=== PATIENT | male | born 1960 | race Caucasian/White ===

== ENCOUNTER 2023-12-11 07:33 | Day surgery (SDC) | payer OTHER, SELFPAY ==
[2023-12-11] VITALS (8 sets, daily range): BP systolic 133–156; BP diastolic 89–101; PULSE 63–73; TEMP 36.2–36.3; O2SAT 95–98; BMI 28.1
--- NOTE | 2023-12-11 07:40 | ECG_ITS ---
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
[2023-12-11 08:02] LABS: INR 0.97; Partial Thromboplastin Time 29.1 sec (22.3-36.2); Prothrombin Time 10.3 sec (9.0-11.6)
[2023-12-11] MEDS: LACTATED RINGER'S SOLUTION 1,000 ML 50 ML IV ×2 (08:13→10:25)
[2023-12-11] MEDS: CEFAZOLIN SODIUM/DEXTROSE,ISO 2 GM/50 ML PIGGYBACK IV (09:10)
--- NOTE | 2023-12-11 09:45 | XR_ITS ---
[address] [address] Patient Name: GEOVANNA JOHANSEN MRN: [id number] date: 1960 Sex: M Assigned Patient Location: [facility] Current Patient Location: Accession/Order Number: [id number] Exam Date: 12/11/2023 09:45 Report Date: 12/12/2023 04:46 At the request of: JANY MARROQUIN Procedure: XR urethrogram retrograde EXAM: XR urethrogram retrograde HISTORY: kidney stone COMPARISON: None. TECHNIQUE: Intraprocedural spot fluoroscopic images. FINDINGS: Retrograde filling of left ureter and upper collecting system with slight irregularity of the gilbert of the proximal ureter. Subsequent stent placement. XR/XR urethrogram retrograde IMPRESSION: 1. Left ureter stent placement. Electronically authenticated by: JEISON WALLER Date: 12/12/2023 04:46
[2023-12-11] MEDS: IOHEXOL 300 MG/ML - 50 ML BTL INJ (10:36)
--- NOTE | 2023-12-11 10:42 | P.URON_ITS ---
Urology Surgery Operative Note Operative Note Procedure Date: 12/11/23 Time Out Performed: yes Pre-op Diagnosis: Left ureteral and renal calculi Post-op Diagnosis: same as pre-op Procedures performed: 1. Urethral dilation with [place] sounds to 24 [place]. 2. Cystoscopy. 3. Left retrograde pyelogram. 4. Left ureteroscopy. 5. Left pyeloscopy. 6. Thulium laser lithotripsy of left renal calculus. 7. Left ureteral calculi basket extraction. 8. Placement of 4.8 [place] variable length left ureteral stent Anesthesia: General-LMA Primary Surgeon: Bi Nair Complications: None Estimated blood loss (mL): 10 Findings: 1. Large distal left ureteral calculus. 2. Small proximal left ureteral calculi. 3. Several left renal calculi; only 1 which was free in the urinary tract. 4. Distal urethral stenosis. Specimens: Left ureteral calculi fragments Drains: 4.8 [place] left ureteral stent Indications for Procedures: This gentleman has a 7 mm left ureteral calculus that he has been unable to pass for nearly 2 weeks. He also has an ipsilateral 2 mm renal calculus. He is desirous for ureteroscopic stone manipulation and probable left stent placement. He has signed an informed consent after risks were explained. Detailed description of Procedure: The patient was brought to the operating room and placed on the operating room table in the supine position. SCDs were placed on the lower extremities and turned on and functioning during the entire case. Timeout was done by all p arties in the room. We all agreed upon the patient's identification and the planned procedures for this patient. Genn. anesthesia was then administered. The patient was then repositioned into the modified dorsal lithotomy position. All pressure points were satisfactorily padded. Genitalia were sterilely prepped and draped in usual fashion. I started by attempting to pass a 22 [place] Olympus cystoscope per urethra but was unable due to urethral stenosis. I then used [place] sounds and dilated him from 22 [place] up to 24 [place]. His distal urethra was rather stenosed. I then was able to pass the cystoscope through the urethra and into the bladder. The rest of the urethra was unremarkable. The prostatic urethra revealed prostatic calculi and only hypertrophy not obstruction. Careful panendoscopy in the bladder revealed no evidence of any stones or tumors. He did have a disproportionate amount of thick high-grade trabeculation with diverticuli formation diffusely. While using fluoroscopy I was unable to appreciate any stones. I then passed a Glidewire through the scope and cannulated the left ureter and was able to get it up to the kidney. This was done after using an open ended ureteral catheter and doing a retrograde pyelogram which was unremarkable. I then passed in a 10/12 ureteral access sheath over the wire after removing the cystoscope. As the access sheath ascen ded it felt as if I potentially broke up a stone. The stylette and wire were then removed. I then passed a flexible ureteroscope through the access sheath and into the ureter. As I ascended up the ureter there were a couple small stones. Both of these were basketed and extracted and sent for stone analysis. I continued up the ureter and then went into the kidney because I did not see the any large stone within the ureter. I scoped in the upper mid and lower pole calyces. There were multiple Pedrito's plaques. There was one free stone within the kidney. I passed a 200 Angstrom thulium laser fiber and this was lithotripsied and dusted. I used a 6 W setting. No other graspable stones were noted. There was 1 stone which looked as though it was about to sprout from the kidney and I lasered this. This turned out not to be a stone. Upon completion there was no bleeding. At this time I then brought the ureteroscope down the ureter and slowly removed the access sheath as the scope was brought down. In the distal third of the ureter there was in fact the large stone which the access sheath had crumbled. I was able to use the 0 tip nitinol basket and engage these pieces and dumped them in the base of the bladder. I removed the flexible ureteroscope and access sheath and then passed a semirigid ureteroscope and went back up the distal left ureter. I removed all of the remaining pieces. The cystoscope was then passed into the bladder and the [place] was used to get all the pieces from the base of the bladder out and these were sent for stone analysis. I then passed a Glidewire through the scope and up the left ureter into the kidney. I then slid a 4.8 [place] variable length ureteral stent over the wire up to the kidney. The wire was removed and there were good curls in the kidney and in the bladder. The bladder was drained of its contents and the scope was then removed. He was then transferred to a [facility] bed and wheeled to PACU in stable condition. He will be discharged to home later today with a prescription for cephalexin 500 mg twice daily for 5 days and Vesicare 10 mg daily #14.
[2023-12-11] MEDS: SOLIFENACIN SUCCINATE 10 MG TABLET PO (11:16)
== END 2023-12-11 11:48 | disposition home or self-care (01) ==
PROVIDERS: Visit Provider Urology
PROC: (CPT 918; principal; 2023-12-11 09:05)
DX: N13.2 Hydronephrosis with renal and ureteral calculous obstruction (principal); N35.919 Unspecified urethral stricture, male, unspecified site; Z87.891 Personal history of nicotine dependence; E78.5 Hyperlipidemia, unspecified
CPT/HCPCS: 52352; 52356; 36415; 74420; 82365; 85610; 85730; 93005; 99999; J0690; J1100; J1885; J2250; J2371; J2405; J2704; Q9967